=== PATIENT | male | born 1945 ===

== ENCOUNTER 2016-10-29 09:00 | Day surgery (SDC) | payer MEDICARE ==
[2016-10-26 10:31] VITALS: BMI 26.6
[2016-10-29] MEDS ORDERED: Iodixanol 320 MG/ML 100 ML BOTTLE IV ONE (09:08)
[2016-10-29] MEDS ORDERED: Midazolam 2 MG/2 ML VIAL ONE (09:46)
--- NOTE | 2016-10-29 16:06 | CARDCATH ---
PROCEDURE DATE: 10/29/2016 PERFORMING PHYSICIAN: Amador Branch MD. REFERRING PHYSICIAN: Ponce Ruff MD. PROCEDURE PERFORMED: Right heart catheterization, left heart catheterization, coronary angiography, left ventriculography. INDICATIONS: Dyspnea on exertion. COMPLICATIONS: None. HISTORY: The patient is a 71-year-old male with a past medical history of hypertension, hypercholest erolemia, diabetes mellitus who has dyspnea on exertion. The patient had a normal pharmacological st ress test; however, he had persistent dyspnea. He is referred for cardiac catheterization. DESCRIPTION OF PROCEDURE: After obtaining informed consent, the patient was prepped and draped in th e usual sterile fashion. The right groin was anesthetized with 2% lidocaine solution. A 6-[place] sh eath was inserted into the right common femoral artery via modified Seldinger technique. Right femor al vein access was also obtained. Right heart catheterization was performed. Left heart catheteriza tion, coronary angiography, and left ventriculography were performed. All catheters were then remove d. An Angio-Seal device deployed successfully to achieve hemostasis. FINDINGS: HEMODYNAMICS: The right atrial pressure is 5 mmHg. Right ventricular pressure is 35/5. Pulmonary a rterial pressure is 35/10. Pulmonary capillary wedge pressure is 10. LEFT MAIN: Normal. LEFT ANTERIOR DESCENDING ARTERY: There is a 40% stenosis of the proximal vessel. LEFT CIRCUMFLEX ARTERY: There are minor luminal irregularities of the vessel. RIGHT CORONARY ARTERY: Arises from the right sinus of Valsalva. There is a right dominant circulati on. There is a hazy mid RCA stenosis of 70%. This is likely the culprit for the patient's abnormal symptoms. LEFT VENTRICLE: Normal left ventricular systolic function. Ejection fraction is 55%. There is no m itral regurgitation, no aortic stenosis. CONCLUSIONS: 1. Single vessel coronary artery disease. 2. Normal left ventricular function. 3. Mild pulmonary hypertension. PLAN: The patient will be started on antiplatelet therapy. He will be scheduled for elective interv ention of the right coronary artery. Amador Branch MD cc: [id number] TT: 10/29/2016 16:05:28 rn
[2016-11-02 09:35] VITALS: RESP 21; O2SAT 97
== END 2016-10-29 15:00 | disposition home or self-care (01) ==
LOC: C.CATHLAB 09:00
PROVIDERS: ATTEND Surgery Trauma Surgery
DX: R06.00 Dyspnea, unspecified (principal); I10 Essential (primary) hypertension; E78.1 Pure hyperglyceridemia; E11.9 Type 2 diabetes mellitus without complications; I25.10 Atherosclerotic heart disease of native coronary artery without angina pectoris; I27.2 Other secondary pulmonary hypertension
CPT/HCPCS: 93460; C1714; C1760; C1766; C1769; C1887; J1644; J2250; J3010; Q9967

== ENCOUNTER 2018-03-10 18:35 | Emergency (ER) | payer MEDICARE ==
[2018-03-10 18:35] VITALS: BMI 26.1
[2018-03-10] MEDS ORDERED: Sodium Chloride 0.9% 1,000 ML IV ONE (19:31)
--- NOTE | 2018-03-10 19:32 | C.PDOC ---
History Of Present Illness 72 y/o male presents to the ED complaining of right sided flank pain since yesterday. The patient denies any hematuria or dysuria. She also complains of neck pain. The patient denies any trauma to the neck region. Time Seen by Provider: 03/10/18 19:26 Chief Complaint (Nursing): Back Pain History Per: Patient History/Exam Limitations: no limitations Onset/Duration Of Symptoms: Days Previous Symptoms: Neck Pain Recent travel outside of the [place]: No Past Medical History Reviewed: Historical Data, Nursing Documentation, Vital Signs Vital Signs: Last Vital Signs Temp 100.9 F H 03/10/18 18:38 Pulse 93 H 03/10/18 18:38 Resp 18 03/10/18 18:38 BP 156/82 H 03/10/18 18:38 Pulse Ox 95 03/10/18 18:38 - Medical History PMH: HTN, Hypercholesterolemia, Mitral Valve Prolapse Denies: Chronic Kidney Disease Surgical History: Endoscopy Denies: Pacemaker Family History: States: Unknown Family Hx - Social History Hx Alcohol Use: No Hx Substance Use: No - Immunization History Hx Tetanus Toxoid Vaccination: No Hx Influenza Vaccination: No Hx Pneumococcal Vaccination: No Review Of Systems Except As Marked, All Systems Reviewed And Found Negative. Constitutional: Negative for: Fever, Chills Gastrointestinal: Negative for: Vomiting, Diarrhea Genitourinary: Negative for: Dysuria, Hematuria Musculoskeletal: Positive for: Neck Pain, Other (Right flank pain) Neurological: Negative for: Weakness, Numbness Physical Exam - Physical Exam Appears: Other (Mild distress due to pain ) Skin: Warm, Dry Head: Atraumatic, Normacephalic Eye(s): bilateral: Normal Inspection, PERRL, EOMI Ear(s): Bilateral: Normal Oral Mucosa: Moist Neck: Normal ROM, No Midline Cervical Tenderness, Supple, Other (preoccipital muscular tenderness) Chest: Symmetrical Cardiovascular: Rhythm Regular, No Murmur Respiratory: Normal Breath Sounds, No Rales, No Rhonchi, No Wheezing Gastrointestinal/Abdominal: Soft, Tenderness (to the right flank), No Guarding, No Rebound Back: CVA Tenderness (minimal) Extremity: Normal ROM Extremity: Bilateral: Normal Color And Temperature, Normal ROM Neurological/Psych: Oriented x3, Normal Speech ED Course And Treatment - Laboratory Results Result Diagrams: 03/10/18 19:49 03/10/18 19:49 O2 Sat by Pulse Oximetry: 95 (RA) Pulse Ox Interpretation: Normal - CT Scan/US Abdomen and Pelvis Other Rad Studies (CT/US): Read By Radiologist, Radiology Report Reviewed CT/US Interpretation: Impression: 1. enlargede prostate. 2. steatosis. 3. Urinary Tract calculus not identified Neck Pain Other Rad Studies (CT/US): Read By Radiologist, Radiology Report Reviewed CT/US Interpretation: Impression: Advanced hypertrophic and degenerative changes mainly at the C5-C6 and C6-C7 levels with chronic disc disease at these levels. If warranted correlation with MRI examination of the cervical spine is recommended. Medical Decision Making Medical Decision Making: Impression: 72 y/o male presents to the ED complaining of right sided flank pain since yesterday and neck pain to the preoccipital muscular region Plan: -CT Abd & Pelvis -CT Cervical spine w.o contrast -CMP -Lipase -UA -IV Fluids -Toradol 30 mg Disposition - Disposition Referrals: Ponce Ruff MD [Medical Doctor] - Disposition: HOME/ ROUTINE Disposition Time: 23:16 Condition: STABLE Prescriptions: Cyclobenzaprine [Cyclobenzaprine HCl] 10 mg PO TID #20 tab Naproxen 375 mg PO Q8 #20 tablet Instructions: Flank Pain (DC), Degenerative Disc Disease (DC), Generalized Neck Pain (DC) Forms: [employer] (Salvadorean), Gen Discharge Inst Macedonian Print Language: NEPALI - POA Present On Arrival: None - Clinical Impression Clinical Impression: Cervical arthritis, Flank pain - PA / IRRIGATION ENGINEER / Resident Statement MD/DO has reviewed & agrees with the documentation as recorded. - Scribe Statement The provider has reviewed the documentation as recorded by the Scribe (Ayaka Galvan) Provider Attestation: All medical record entries made by the Scribe were at my direction and personally dictated by me. I have reviewed the chart and agree that the record accurately reflects my personal performance of the history, physical exam, medical decision making, and the department course for this patient. I have also personally directed, reviewed, and agree with the discharge instructions and disposition.
[2018-03-10 19:53] LABS: BASO # 0.1 K/uL (0.0-0.2); BASO % 1.2 % (0.0-2.0); EOS % 0.3 % (0.0-4.0); HEMOGLOBIN 9.7 g/dL (12.0-18.0); LYMPH # 1.2 K/uL (1.0-4.3); LYMPH % 14.4 % (20.0-40.0); MEAN CELL VOLUME 76.1 fL (80.0-94.0); MEAN CORPUSCULAR HEMOGLOBIN 25.1 pg (27.0-31.0); MEAN PLATELET VOLUME 8.1 fL (7.2-11.7); MONO # 1.3 K/uL (0.0-0.8); MONO % 15.3 % (0.0-10.0); NEUT # 5.7 K/uL (1.8-7.0); NEUT % 68.8 % (50.0-75.0); RBC 3.85 Mil/uL (4.40-5.90); RED CELL DISTRIBUTION WIDTH 19.8 % (11.5-14.5); WHITE BLOOD COUNT 8.3 K/uL (4.8-10.8)
[2018-03-10 19:56] LABS: SQUAMOUS EPITHIAL 2 /hpf (0-5); URINE BACTERIA RARE (<OCC); URINE BILIRUBIN NEGATIVE (NEGATIVE); URINE BLOOD TRACE (NEGATIVE); URINE CLARITY Clear (Clear); URINE COLOR Yellow (YELLOW); URINE GLUCOSE (UA) 2+ mg/dL (Normal); URINE LEUKOCYTE ESTERASE NEG Leu/uL (Negative); URINE PROTEIN 1+ mg/dL (NEGATIVE); URINE UROBILINOGEN NORMAL mg/dL (0.2-1.0)
[2018-03-10 20:05] LABS: ALB/GLOB RATIO 1.2 (1.0-2.1); ALBUMIN 3.5 g/dL (3.5-5.0); ALT/SGPT 23 U/L (21-72); AST/SGOT 21 U/L (17-59); BLOOD UREA NITROGEN 15 mg/dL (9-20); CALCIUM 8.8 mg/dl (8.6-10.4); GFR NON-AFRICAN AMERICAN > 60; LIPASE 60 U/L (23-300)
[2018-03-10 23:37] VITALS: BP 110/70; PULSE 82; RESP 20; TEMP 98; O2SAT 97
--- NOTE | 2018-03-11 10:21 | CT ---
Date of service: 03/10/2018. PROCEDURE: CT Cervical Spine without contrast. HISTORY: Neck pain COMPARISON: Prior study available for comparison. TECHNIQUE: Axial computed tomography images were obtained of the cervical spine without the use of intravenous contrast. Coronal and sagittal reformatted images were created and reviewed. Radiation dose: Total exam DLP = 612.71 mGy-cm. This CT exam was performed using one or more of the following dose reduction techniques: Automated exposure control, adjustment of the mA and/or kV according to patient size, and/or use of iterative reconstruction technique. FINDINGS: VERTEBRAE: The current study reveals no acute compression fractures no retropulsed fragments. Vertebral bodies exhibit relatively normal stature. There is straightening of the normal cervical lordosis which may be due to patient positioning in the gantry however underlying element of muscle spasm may contribute. Clinical correlation recommended. DISCS/SPINAL CANAL/NEURAL FORAMINA: Multilevel degenerative spondylosis. At the C2-C3 level, there is relatively adequate disc height. Minimal broad-based disc ridge complex contiguous with slightly hypertrophic uncovertebral joints left greater than right. Facets also mildly hypertrophic. The overall central bony canal appears adequate. Right exit foramen is marginal to adequate. Left exit foramen is mildly narrowed. At the C3-C4 level, there is disc space narrowing more so along the posterior disc margin. Small broad-based disc ridge complexes also present contiguous with mildly hypertrophic uncovertebral joints. Facets also hypertrophic right greater than left. Central canal is marginal to minimally narrowed. Exit foramina are stenotic bilaterally. At the C4-C5 level, there is disc space narrowing with minimal disc ridge complex. Uncovertebral joints are mildly hypertrophic as well left greater than right. Facets are hypertrophic right greater than left. Central canal is mildly narrowed. Exit foramina are stenotic bilaterally. At the C5-C6 level, there is disc space narrowing with endplate eburnation subchondral sclerosis and subchondral cystic changes. Small central and bilateral disc ridge complex is present and contiguous with hypertrophic uncovertebral joints. Facets are hypertrophic. Changes result in mild central canal narrowing and cord compression. PARASPINAL SOFT TISSUES: Prevertebral and posterior paraspinal soft tissues unremarkable. OTHER FINDINGS: Severe centrilobular and panlobular emphysematous changes are present. There is also localized of pleural thickening in both lung apices right greater than left.. There is also small bulla right lung apex. IMPRESSION: No evidence of acute compression fracture nor retropulsed fragments. Multilevel degenerative spondylosis. 1. See above discussion for additional details and findings.
--- NOTE | 2018-03-11 10:49 | CT ---
Date of service: 03/10/2018 PROCEDURE: CT Abdomen and Pelvis without intravenous contrast HISTORY: right flank pain COMPARISON: 02/21/2018. TECHNIQUE: Unenhanced. Neither IV nor oral contrast administered Radiation dose: Total exam DLP = 897.11 mGy-cm. This CT exam was performed using one or more of the following dose reduction techniques: Automated exposure control, adjustment of the mA and/or kV according to patient size, and/or use of iterative reconstruction technique. FINDINGS: LOWER THORAX: Unremarkable. LIVER: Unremarkable. No gross lesion or ductal dilatation. GALLBLADDER AND BILE DUCTS: Unremarkable. PANCREAS: Unremarkable. No gross lesion or ductal dilatation. SPLEEN: Unremarkable. ADRENALS: Unremarkable. No mass. KIDNEYS AND URETERS: Unremarkable. No hydronephrosis. No solid mass. VASCULATURE: Unremarkable. No aortic aneurysm. BOWEL: Unremarkable. No obstruction. No gross mural thickening. APPENDIX: Unremarkable. Normal appendix. PERITONEUM: Unremarkable. No free fluid. No free air. LYMPH NODES: Unremarkable. No enlarged lymph nodes. BLADDER: Unremarkable. REPRODUCTIVE: Stable, enlarged prostate. BONES: No acute fracture. OTHER FINDINGS: None. IMPRESSION: No acute findings related to/accounting for the clinical presentation. Additional benign and/or incidental findings described above. No significant interval change compared to the prior examination(s). Concordant results (preliminary interpretation) provided by [facility]. Procedure Completed: 20:24 Preliminary Report: Dictated and Authenticated: 21:16 Final Interpretation: 10:47. March 11, 2018.
== END 2018-03-10 23:35 | disposition home or self-care (01) ==
LOC: C.ER 18:35
DX: R10.9 Unspecified abdominal pain (principal); M47.812 Spondylosis without myelopathy or radiculopathy, cervical region
CPT/HCPCS: 72125; 74176; 80053; 81001; 83690; 85025; 96372; 96374; 99284; J1885; J7030